=== PATIENT | male | born 1990 | race Caucasian/White ===

== ENCOUNTER 2022-06-17 20:13 | Emergency (ER) | payer MEDICAID, SELFPAY ==
[2022-06-17 20:14] VITALS: BP 151/100; PULSE 97; RESP 32; TEMP 36.2; O2SAT 97; BMI 49.1
--- NOTE | 2022-06-17 20:15 | NURSING ---
NO OLD EKGS
--- NOTE | 2022-06-17 20:27 | RAD_ITS ---
EXAM: XR CHEST, 1 VIEW CLINICAL INDICATION: chest pain TECHNIQUE: Frontal view of the chest. COMPARISON: No relevant prior studies available. FINDINGS: LUNGS AND PLEURAL SPACES: Unremarkable. No consolidation or edema. No pneumothorax. No effusion. HEART: Unremarkable. Cardiac silhouette not enlarged. MEDIASTINUM: Central airways and mediastinal contour are unremarkable. BONES/JOINTS: Unremarkable. SOFT TISSUES: Unremarkable. RAD/Chest 1 View (Portable) IMPRESSION: No radiographic evidence of acute cardiopulmonary disease. Electronically Signed: Niko Vazquez MD at 20:41 EDT ,
--- NOTE | 2022-06-17 20:27 | EKG12_ITS ---
Test Reason : CP Blood Pressure : / mmHG Vent. Rate : 101 BPM Atrial Rate : 101 BPM P-R Int : 148 ms QRS Dur : 098 ms QT Int : 340 ms P-R-T Axes : 027 018 004 degrees QTc Int : 440 ms Sinus tachycardia Otherwise normal ECG Confirmed by ORSA FLORES, JOSE ([id number]), supervising editor trailer RIC SHAFER ([id number]) on 06/19/2022 8:11:00 AM Referred By: MEME Confirmed By:JOSE LEE MD
[2022-06-17 20:38] LABS: Absolute Lymphocyte Count 2.36 X10^3/uL (0.83-4.51); Absolute Neutrophil Count 4.8 X10^3/uL (2.0-7.7); Basophil# 0.05 X10^3/uL; Basophil% 0.6 % (0-1); Eosinophil# 0.18 X10^3/uL; Eosinophils% 2.3 % (0-5); Hematocrit 45.7 % (40-54); Lymphocyte # 2.36 X10^3/ul (0.83-4.51); Lymphocyte % 29.8 % (19-41); Mean Corp Hgb Conc 32.8 g/dL (32-36); Mean Corpuscular Hgb 28.7 pg (27.0-32.0); Mean Corpuscular Volume 87.5 fL (80-94); Mean Platelet Vol. 10.4 fl (6.2-12.0); Monocyte# 0.51 X10^3/uL; Monocyte% 6.4 % (0-10); NRBC Flagged by Analyzer 0 % (0-5); Neutrophil # 4.79 X10^3/uL (2.7-7.7); Neutrophil % 60.5 % (47-70); Platelet Count 227 K/mm3 (150-450); RBC Distribution Width CV 13.2 % (11.6-14.6); RBC Distribution Width SD 42.2 fl (35.1-43.9); Red Blood Count 5.22 M/mm3 (4.6-6.2); White Blood Count 7.9 K/mm3 (4.4-11.0)
--- NOTE | 2022-06-17 20:43 | NURSING ---
NO OLD EKGS
--- NOTE | 2022-06-17 20:46 | ED.VIS.CHEST ---
HPI History of Present Illness Chief Complaint: Chest Pain Narrative Narrative: 32-year-old male presenting with chest tightness. He states he left the AA meeting and started to feel tightness chest. He started to hyperventilate he feels like it might have been anxiety he does have a history of this. Patient states he has family history of cardiac disease but no history himself. No pulmonary disease that he knows of. Patient is a smoker. He has history of DVT in the past which he believes were provoked by an accident. He is not anticoagulated currently. No fevers, chills. He states he feels improved now compared to when the symptoms started. Patient states he has a history of non-Hodgkin's lymphoma which is in remission and he takes Lasix daily for lower extremity edema. Patient states that he has not had a drink of alcohol in several months. He does not believe this would be associated with withdrawal. [facility] Medical History Cleft lip and palate Hodgkin lymphoma Allergy/AdvReac Type Severity Reaction Status Date / Time No Known Allergies Allergy Verified 06/17/22 20:16 Social History Smoking Status: Current every day smoker tobacco type: cigarettes and e-cigarettes ROS ROS ED Constitutional Constitutional ED: Denies chills or fever(s) Eyes Eyes: Denies blurry vision ENT ENT ED: Denies ear pain or rhinorrhea Cardiovascular Cardiovascular: Reports chest pain Respiratory/Chest Respiratory/Chest: Reports dyspnea; Denies cough Gastrointestinal Gastrointestinal: Denies abdominal pain, nausea or vomiting Genitourinary Genitourinary ED: Denies dysuria or hematuria Musculoskeletal Musculoskeletal: Denies arthralgias or back pain Integumentary Denies abscess or Abrasions Neurologic Neurologic: Denies headache(s) or paresthesias Psychiatric Psychiatric: Reports anxiety; Denies suicidal ideation or suicidal thoughts EXAM Physical Exam Const Vital Signs: 06/17/22 20:14 06/17/22 20:17 06/17/22 20:27 Temperature 97.2 F L Temperature Source Temporal Pulse Rate 97 Respiratory Rate 32 H Respiratory Effort Short of Breath Blood Pressure 151/100 H Blood Pressure Mean 117 Pulse Ox 97 Oxygen Delivery Method Room Air Room Air Positive obese General Appearance ED: NAD Nutritional Appearance: obese HEENT Reports moist mucous membranes normocephalic and atraumatic Eyes PERRL and EOMs intact bilaterally Neck no lymphadenopathy Resp normal respiratory effort and clear to auscultation bilaterally Cardio regular rate and regular rhythm Extremity normal to inspection General Extremety ED: Yes edema General Extremity: edema Neuro oriented x3 and CN's II-XII intact bilaterally Sensorium / Orientation: awake and alert Motor Exam: strength 5/5 throughout Psych mental status grossly normal Heart Score History: Slightly/Non-Suspicious ECG: Normal Age: </= 45 years Risk Factors: 1 or 2 Risk Factors Troponin: </= Normal Limit Score: 1 MDM MDM MDM Narrative Medical decision making narrative: Patient presenting with what he believes is an anxiety attack. He is having chest tightness. HEART score of 1. Differential at this point includes ACS, PE, pneumonia, anxiety. EKG was obtained which shows sinus tachycardia with a ventricular rate of 101 bpm without sign of ischemic change. CBC to assess white blood cell count, hemoglobin, platelets, differential. BMP to assess renal function, electrolytes, glucose, anion gap. High-sensitivity troponin and chest x-ray will also be obtained. D-dimer to be obtained to rule out PE since I cannot use PERC for him. Patient does report of provoked history of DVT in the past but no PE. Patient declines analgesia at this time. CBC and BMP are unremarkable. High-sensitivity 1 is 4. D-dimer is negative at 0.27. Patient feeling better. I do believe this is likely anxiety driven. Patient has follow-up that he is arranging as an outpatient. Return precautions were discussed. Probably needs a delta troponin. Impression: 1. Anxiety 2. Chest tightness Lab Data Attestation: I reviewed the patient's lab results. Labs: Laboratory Results - last 24 hr 06/17/22 06/17/22 06/17/22 20:20 20:20 20:20 WBC 7.9 RBC 5.22 Hgb 15.0 Hct 45.7 MCV 87.5 MCH 28.7 MCHC 32.8 RDW Std Deviation 42.2 RDW Coeff of Randi 13.2 Plt Count 227 MPV 10.4 Immature Gran % (Auto) 0.400 Neut % (Auto) 60.5 Lymph % (Auto) 29.8 [place] % (Auto) 6.4 Eos % (Auto) 2.3 Baso % (Auto) 0.6 Absolute Neuts (auto) 4.8 Absolute Lymphs (auto) 2.36 Nucleated RBC % 0 D-Dimer Quant (PE/DVT) < 0.27 L Sodium 142 Potassium 3.7 Chloride 105 Carbon Dioxide 26.0 Anion Gap 11 BUN 17 Creatinine 1.03 Estim Creat Clear Calc 115.10 Est GFR (MDRD) Af Amer 109 Est GFR (MDRD) Non-Af 90 BUN/Creatinine Ratio 16.5 Glucose 97 Calcium 9.2 Troponin I High Sens 4 Radiography Diagnostic Testing: Clinical Impression(s) from Imaging Studies Chest X-Ray 06/17/22 20:27 IMPRESSION: No radiographic evidence of acute cardiopulmonary disease. Electronically Signed: Niko Vazquez MD at 20:41 EDT , Discharge Plan Triage Chief Complaint: Chest Pain ED Provider: Andrea Flores Dx/Rx/DC Orders Instructions: ED Chest Pain, Noncardiac, ED Panic Attack Primary Care Provider: Care Physician,No Primary Referrals: Care Physician,No Primary [Primary Care Provider] - Disposition Disposition: Home, Self Care
[2022-06-17 20:57] LABS: Anion Gap 11 (5-15); BUN 17 mg/dL (7-18); BUN/Creat Ratio 16.5 RATIO (10-20); Calcium,Total 9.2 mg/dL (8.5-10.1); Chloride 105 mmol/L (98-107); Creatinine, Serum 1.03 mg/dL (0.70-1.30); EST Glomerular Filtration Rate 90 mL/min (>60); Est Glom Filt Rate - Afr Amer 109 mL/min (>60); Glucose 97 mg/dL (74-106); Potassium 3.7 mmol/L (3.5-5.1); Sodium Level 142 mmol/L (136-145); Troponin-I HS 4 pg/mL (3.0-78.0)
[2022-06-17 21:07] LABS: D-Dimer Quantitative (DVT/PE) < 0.27 FEU/ug/m (0.27-0.49)
--- NOTE | 2022-06-17 21:34 | CM.ED ---
Social Work Note Referral Source: case find Referral Reason: no PCP SW met with patient and introduced herself and role as [facility] Authorizer. Patient lying on hospital bed and agreeable to speak with SW. SW inquired about patient's insurance and current PCP. Patient verified insurance and reports no current PCP. SW provided patient with a list of local PCPs in network with patient's insurance and accepting new patients. Patient was receptive towards list and voiced no other needs. SW remains available if needs arise. Zohreh Garay MSW, NANDA
[2022-06-17 23:10] VITALS: PULSE 76; RESP 16; O2SAT 98
== END 2022-06-17 23:11 | disposition home or self-care (01) ==
PROVIDERS: Emergency Provider Student in an Organized Health Care Education/Training Program; Visit Provider Student in an Organized Health Care Education/Training Program
DX: F41.9 Anxiety disorder, unspecified (principal); Z68.42 Body mass index [BMI] 45.0-49.9, adult; R07.89 Other chest pain; F17.210 Nicotine dependence, cigarettes, uncomplicated; F17.290 Nicotine dependence, other tobacco product, uncomplicated; E66.9 Obesity, unspecified; Z82.49 Family history of ischemic heart disease and other diseases of the circulatory system
CPT/HCPCS: 71045; 80048; 84484; 85025; 85379; 93005; 99285; A4216

== ENCOUNTER → 2022-07-20 | Outpatient (CLI) | payer MEDICAID, SELFPAY ==
[2022-07-20 12:46] LABS: AST(SGOT) 14 U/L (15-37); Alanine Aminotransfer ALT/SGPT 31 U/L (16-61); Albumin, Serum 3.8 g/dL (3.2-5.0); Alkaline Phosphatase 68 U/L (45-117); Bilirubin, Direct 0.11 mg/dL (0.00-0.30); Cholesterol 209 mg/dL (200); Globulin 3.2 g/dL (2.2-4.2); High Density Lipoprotein 34 mg/dL; Triglycerides 135 mg/dL; Very Low Density Lipoprotein 27 mg/dL (5-40)
== END | disposition home or self-care (01) ==
LOC: BIMLAB 11:01
PROVIDERS: Visit Provider Internal Medicine
DX: Z13.6 Encounter for screening for cardiovascular disorders (principal)
CPT/HCPCS: 36415; 80061; 80076

== ENCOUNTER → 2022-08-12 | Outpatient (CLI) | payer MEDICAID, SELFPAY ==
--- NOTE | 2022-08-12 15:01 | ECHOD_ITS ---
Reason For Study: SOB Procedure This was a 2D Doppler, Color Flow transthoracic echocardiogram. The study was technically difficult. Exam performed in department. Left Ventricle Normal LV size. The estimated ejection fraction is 65 %. No evidence for diastolic dysfunction. No regional wall motion abnormalities noted. Right Ventricle Normal RV size. Normal systolic function. Atria Normal left atrium. Normal right atrium. No doppler evidence for ASD. Mitral Valve There is no mitral valve stenosis. Trivial mitral valve insufficiency. Tricuspid Valve There is no tricuspid stenosis. Unable to estimate RV systolic pressure due to inadequate jet, pulmonary artery pressure probably normal. Aortic Valve Trisinus/trileaflet aortic valve. There is no aortic stenosis. No aortic valve insufficiency. Pulmonic Valve There is no pulmonic valvular stenosis. No pulmonic valve insufficiency. Great Vessels Normal aortic root. Pericardium/Pleural No pericardial effusion. MMode/2D Measurements & Calculations LVIDd: 5.1 cm IVSd: 1.2 cm Ao root diam: 4.0 cm LVIDs: 3.6 cm LVPWd: 1.2 cm RVDd: 3.7 cm FS: 29.3 % LAV(MOD-bp): 56.6 ml LVAd ap4: 44.0 cm2 LVAd ap2: 45.1 cm2 LAV(MOD-bp) Indexed: 20.6 ml/m2 LVLd ap4: 9.9 cm LVLd ap2: 10.0 cm LAV(MOD-sp2): 58.0 ml EDV(MOD-sp4): 161.4 ml EDV(MOD-sp2): 166.4 ml LAV(MOD-sp4): 48.1 ml EDV(sp4-el): 166.5 ml EDV(sp2-el): 171.9 ml LVAs ap4: 27.0 cm2 LVAs ap2: 25.4 cm2 LVLs ap4: 7.9 cm LVLs ap2: 7.6 cm ESV(MOD-sp4): 77.6 ml ESV(MOD-sp2): 70.1 ml ESV(sp4-el): 78.6 ml ESV(sp2-el): 71.7 ml EF(MOD-sp4): 51.9 % EF(MOD-sp2): 57.9 % EF(sp4-el): 52.8 % SV(MOD-sp4): 83.8 ml SV(MOD-sp2): 96.4 ml SV(sp4-el): 87.9 ml LA dimension(2D): 4.0 cm LA A4 area: 17.2 cm2 RA A4 area: 17.1 cm2 TAPSE: 2.8 cm Time Measurements MV dec time: 0.22 sec Doppler Measurements & Calculations MV E max kenneth: 113.9 cm/sec Lat Peak E' Kenneth: 15.5 cm/sec Med Peak E' Kenneth: 12.1 cm/sec MV A max kenneth: 101.1 cm/sec E/E' lat: 7.3 E/E' med: 9.4 MV E/A: 1.1 MV V2 max: 124.0 cm/sec MV P1/2t max kenneth: 124.5 cm/sec Ao V2 max: 133.1 cm/sec MV max P.1 mmHg MV P1/2t: 49.4 msec Ao max P.1 mmHg MV V2 mean: 68.1 cm/sec MV dec slope: 737.6 cm/sec2 Ao V2 mean: 94.6 cm/sec MV mean P.2 mmHg Ao mean P.1 mmHg MV V2 VTI: 29.9 cm MVA(P1/2t): 4.5 cm2 Ao V2 VTI: 26.7 cm AV (velocity ratio): 0.88 LV V1 max: 123.5 cm/sec PA V2 max: 98.1 cm/sec TR max kenneth: 112.3 cm/sec LV V1 max P.1 mmHg TR max P.1 mmHg LV V1 mean P.2 mmHg LV V1 mean: 83.2 cm/sec LV V1 VTI: 23.5 cm ECHO/Echo Complete Interpretation Summary The estimated ejection fraction is 65 %. No evidence for diastolic dysfunction. Trivial mitral valve insufficiency. Ordering Physician: Sarah Ureña Referring Physician: Sarah Ureña Performed By: Paulette Hernandez RVT, RDCS and Student
== END | disposition home or self-care (01) ==
LOC: CVS 14:58
PROVIDERS: PCP Internal Medicine; Referring Provider Internal Medicine; Visit Provider Internal Medicine
DX: R06.02 Shortness of breath (principal)
CPT/HCPCS: 93306

== ENCOUNTER → 2022-08-13 | Outpatient (CLI) | payer MEDICAID, SELFPAY | END | disposition home or self-care (01) | LOC: SL 19:58 | PROVIDERS: PCP Internal Medicine; Referring Provider Internal Medicine; Visit Provider Internal Medicine | DX: G47.33 Obstructive sleep apnea (adult) (pediatric) (principal) | CPT/HCPCS: 95811 ==